=== PATIENT | male | born 1960 | race Caucasian/White ===

== ENCOUNTER → 2016-09-19 | Outpatient (CLI) | payer OTHER ==
[2016-09-19 12:28] LABS: INR 1.48
== END ==
LOC: M LAB 11:29
PROVIDERS: ATTEND Family Medicine
DX: I82.502 Chronic embolism and thrombosis of unspecified deep veins of left lower extremity (principal); Z79.01 Long term (current) use of anticoagulants

== ENCOUNTER → 2016-10-03 | Outpatient (CLI) | payer OTHER ==
[2016-10-03 15:48] LABS: INR 1.47
== END ==
LOC: M LAB 15:00
PROVIDERS: ATTEND Family Medicine
DX: I82.502 Chronic embolism and thrombosis of unspecified deep veins of left lower extremity (principal)

== ENCOUNTER → 2016-10-23 | Outpatient (CLI) | payer OTHER ==
[2016-10-23 14:51] LABS: INR 1.58
== END ==
LOC: M LAB 14:31
PROVIDERS: ATTEND Family Medicine
DX: I82.502 Chronic embolism and thrombosis of unspecified deep veins of left lower extremity (principal)

== ENCOUNTER → 2016-11-17 | Outpatient (REF) | payer OTHER ==
[2016-11-17 21:11] LABS: BANDS 1 % (< 11); EOSINOPHILS 1 % (0-5)
[2016-11-17 21:13] LABS: ANISOCYTOSIS 1+; POLYCHROMASIA 1+; SCHISTOCYTES 1+
[2016-11-17 21:14] LABS: ACANTHOCYTES 1+; HOWELL-JOLLY BODIES 1+; SMUDGE CELLS 2+
== END ==
LOC: M LAB REF 16:37
PROVIDERS: ATTEND Family Medicine
DX: C85.90 Non-Hodgkin lymphoma, unspecified, unspecified site (principal)

== ENCOUNTER → 2016-12-08 | Outpatient (CLI) | payer OTHER ==
[2016-12-08 16:53] LABS: INR 1.34
== END ==
LOC: M LAB 15:29
PROVIDERS: ATTEND Family Medicine
DX: I82.502 Chronic embolism and thrombosis of unspecified deep veins of left lower extremity (principal)

== ENCOUNTER → 2016-12-12 | Outpatient (CLI) | payer OTHER ==
[~2016-12-12] MED LIST: GASTROGRAFIN SOLUTION 30ML (Q9963) As Ordered ONE; ISOVUE-370 76% 100ML VIAL (Q9967) As Ordered ONE
--- NOTE | 2016-12-12 19:33 | REP ---
CT study of the chest with IV contrast: History: History of lymphoma with rising white blood cell count. Question progression. Comparison chest CT study is from 03/26/2013. CT contrast dose: 100 mL Isovue 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 An Trynkl-P-Uwbu catheter is noted on the right. There is no evidence of hilar or mediastinal mass or adenopathy. No pleural effusion is seen. The lung cummins show no evidence of infiltrate or pulmonary mass lesion. There is a granulomatous calcification in the left upper lobe as before. No bony destructive lesion is appreciated. There is no CT evidence of pulmonary embolism. No thoracic aortic abnormality is appreciated. The patient is status post prior splenectomy. Small nodule of residual or recurrent splenic tissue is again seen in the left upper quadrant beneath the diaphragm 2.9 cm in diameter unchanged from the 2013 prior study. Impression: No active disease seen in the chest. Elevated left hemidiaphragm, post splenectomy changes, and right-sided Oojouf-H-Jhxh catheter noted. Signed by Blu Downey MD 12/13/2016 08:56 A
--- NOTE | 2016-12-12 19:38 | REP ---
CT abdomen pelvis without and with IV contrast: With oral contrast: History: Lymphoma history with rising white blood cell count and question progression. Comparison CT study: 03/26/2013. CT contrast dose: 100 mL of Isovue 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 The patient is status post splenectomy. A 3.1 cm splenic nodule is seen again in the left upper quadrant consistent with regenerated or residual spleen unchanged from 2013. The liver is normal in size. No significant focal liver lesion is seen. There is a small 4 mm hypodense area in the right lobe compatible with a small cyst. This does not enhance. No adrenal lesion is seen on either side. Incidental note is made of a left-sided inferior vena cava containing a Ivan vena cava filter as before. The aorta is unremarkable. No other retroperitoneal abnormality is observed. There are some small parapelvic cysts in the left kidney. There is a 1.1 cm cyst in the right mid kidney. These findings are stable. No pancreatic abnormality is observed. The gallbladder is unremarkable. Small and large intestinal bowel loops are normal in appearance. A normal appendix is seen in the right lower quadrant. No pelvic or retroperitoneal mass or adenopathy is observed. There are a few dystrophic calcifications in the prostate gland. No bony destructive lesion is seen. Impression: Status post splenectomy with residual or recurrent splenic nodule again seen. 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 Dystrophic calcifications in the prostate. Small parapelvic left renal cysts. Small cortical cyst right kidney. 5 mm cyst right lobe of the liver. Otherwise unremarkable CT abdomen and pelvis. Signed by Blu Downey MD 12/13/2016 08:56 A
== END ==
LOC: M RAD 15:14
PROVIDERS: ATTEND Internal Medicine Hematology & Oncology
DX: C85.90 Non-Hodgkin lymphoma, unspecified, unspecified site (principal)

== ENCOUNTER → 2016-12-22 | Outpatient (CLI) | payer OTHER ==
[2016-12-22 16:11] LABS: INR 1.88
== END ==
LOC: M LAB 15:30
PROVIDERS: ATTEND Nurse Practitioner Adult Health
DX: Z51.81 Encounter for therapeutic drug level monitoring (principal); Z79.01 Long term (current) use of anticoagulants

== ENCOUNTER → 2017-02-14 | Outpatient (CLI) | payer OTHER ==
[2017-02-14 16:22] LABS: INR 1.45
== END ==
LOC: M LAB 14:57
PROVIDERS: ATTEND Nurse Practitioner Adult Health
DX: Z79.01 Long term (current) use of anticoagulants (principal)

== ENCOUNTER → 2017-02-21 | Outpatient (REF) | payer OTHER ==
[2017-02-21 18:33] LABS: INR 2.65
[2017-02-21 22:54] LABS: ACANTHOCYTES 1+; ANISOCYTOSIS 1+; BANDS 1 % (< 11); BASOPHILS 1 % (0-4); EOSINOPHILS 1 % (0-5); NUCLEATED RED BLOOD CELL 1 % (0-0); OVALOCYTES 1+; POIKILOCYTOSIS 1+; SMUDGE CELLS 1+
== END ==
LOC: M LAB REF 16:28
PROVIDERS: ATTEND Family Medicine
DX: I83.10 Varicose veins of unspecified lower extremity with inflammation (principal); Z79.01 Long term (current) use of anticoagulants

== ENCOUNTER → 2017-04-10 | Outpatient (CLI) | payer OTHER ==
--- NOTE | 2017-04-11 04:25 | REP ---
Clinical: History of lymphoma. Technique: Axial contrast enhanced images from the lung bases to the pubic symphysis using oral and 100 ml Isovue 370 intravenous contrast material with precontrast and delayed images of the abdomen as well as coronal and sagittal re-formations Comparison: 12/12/2016. Findings: Lung bases demonstrate minimal posterior basilar dependent changes. A 3 mm noncalcified medial right lower lobe subpleural density (image 20) is unchanged. Elevation to the left hemidiaphragm noted. Liver, left upper quadrant splenule, pancreas, gallbladder, bilateral adrenal glands and kidneys are normal. Incidental note is made of stable simple right intraparenchymal and left parapelvic renal cysts up to 1.2 cm. 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 The enteric system is without obstruction or acute inflammatory process. The pelvis demonstrates normal bladder and mildly prominent prostate gland. No significant intraperitoneal or retroperitoneal adenopathy. No mass lesion. No ascites. No free air. Surrounding musculoskeletal structures demonstrate age-related changes without focal osseous abnormality. Impression: 1. Chronic stable changes include bilateral renal cysts, mildly prominent prostate gland and evidence for prior splenectomy with residual splenule. 2. No acute abdominopelvic pathology appreciated. Specifically, no adenopathy or abdominal mass lesion or ascites noted. Signed by Hansel Mathews MD 04/11/2017 04:16 A
== END ==
LOC: M RAD 10:58
PROVIDERS: ATTEND Internal Medicine Hematology & Oncology
DX: C85.80 Other specified types of non-Hodgkin lymphoma, unspecified site (principal)

== ENCOUNTER → 2017-04-18 | Outpatient (CLI) | payer OTHER ==
[2017-04-18 16:56] LABS: INR 1.48
== END ==
LOC: M LAB 16:20
PROVIDERS: ATTEND Nurse Practitioner Adult Health
DX: Z79.01 Long term (current) use of anticoagulants (principal)

== ENCOUNTER → 2017-05-16 | Outpatient (CLI) | payer OTHER ==
[2017-05-16 16:22] LABS: INR 2.01
== END ==
LOC: M LAB 15:19
PROVIDERS: ATTEND Nurse Practitioner Adult Health
DX: Z79.01 Long term (current) use of anticoagulants (principal)

== ENCOUNTER → 2017-07-02 | Outpatient (CLI) | payer OTHER ==
[2017-07-02 14:32] LABS: INR 2.07
== END ==
LOC: M LAB 13:03
PROVIDERS: ATTEND Nurse Practitioner Adult Health
DX: Z79.01 Long term (current) use of anticoagulants (principal)

== ENCOUNTER → 2017-08-08 | Outpatient (CLI) | payer OTHER ==
[2017-08-08 11:37] LABS: INR 1.98
== END ==
LOC: M LAB 11:06
PROVIDERS: ATTEND Nurse Practitioner Adult Health
DX: Z79.01 Long term (current) use of anticoagulants (principal)

== ENCOUNTER → 2017-08-22 | Outpatient (REF) | payer OTHER ==
[2017-08-22 12:14] LABS: INR 1.69
[2017-08-22 12:52] LABS: BASOPHILS 1 % (0-4); EOSINOPHILS 2 % (0-5)
[2017-08-22 12:53] LABS: ANISOCYTOSIS 1+
[2017-08-22 12:54] LABS: BURR CELLS 1+
[2017-08-22 12:55] LABS: POIKILOCYTOSIS 1+; SMUDGE CELLS 1+
[2017-08-22 12:56] LABS: REASON FOR REVIEW COMPREHENSIVE REVIEW
== END ==
LOC: M LAB REF 11:52
PROVIDERS: ATTEND Family Medicine
DX: C85.90 Non-Hodgkin lymphoma, unspecified, unspecified site (principal); D72.9 Disorder of white blood cells, unspecified; Z79.01 Long term (current) use of anticoagulants

== ENCOUNTER → 2017-10-11 | Outpatient (CLI) | payer OTHER ==
[2017-10-11 19:11] LABS: INR 3.44; PROTHROMBIN TIME 36.3 SECONDS (12.4-14.5)
== END ==
LOC: M LAB 16:25
DX: Z79.01 Long term (current) use of anticoagulants (principal)
CPT/HCPCS: 85610

== ENCOUNTER → 2017-10-29 | Outpatient (CLI) | payer OTHER ==
[2017-10-29 16:03] LABS: INR 3.01; PROTHROMBIN TIME 32.6 SECONDS (12.4-14.5)
== END ==
LOC: M LAB 15:14
DX: Z79.01 Long term (current) use of anticoagulants (principal)

== ENCOUNTER → 2017-12-10 | Outpatient (CLI) | payer OTHER ==
[2017-12-10 15:44] LABS: INR 2.23; PROTHROMBIN TIME 25.5 SECONDS (12.4-14.5)
== END ==
LOC: M LAB 15:13
DX: Z79.01 Long term (current) use of anticoagulants (principal)
CPT/HCPCS: 85610

== ENCOUNTER → 2018-01-24 | Outpatient (CLI) | payer OTHER ==
[2018-01-24 14:08] LABS: PROTHROMBIN TIME 23.4 SECONDS (12.4-14.5)
== END ==
LOC: M LAB 13:18
DX: Z79.01 Long term (current) use of anticoagulants (principal)

== ENCOUNTER → 2018-03-04 | Outpatient (CLI) | payer OTHER ==
[2018-03-04 13:02] LABS: INR 3.09; PROTHROMBIN TIME 33.3 SECONDS (12.4-14.5)
== END ==
LOC: M LAB 11:52
DX: Z51.81 Encounter for therapeutic drug level monitoring (principal); Z79.01 Long term (current) use of anticoagulants
CPT/HCPCS: 85610

== ENCOUNTER → 2018-03-11 | Outpatient (REF) | payer OTHER ==
[2018-03-11 20:38] LABS: ATYPICAL LYMPH 3 % (0-5); BASOPHILS 1 % (0-4); LYMPHOCYTES 87 % (16-52); MONOCYTES 2 % (0-8); NEUTROPHILS 7 % (35-75)
[2018-03-11 20:41] LABS: PLATELET ESTIMATE NORMAL (NORMAL)
[2018-03-11 20:42] LABS: ANISOCYTOSIS 1+; POLYCHROMASIA 1+
== END ==
LOC: M LAB REF 18:02
DX: C83.00 Small cell B-cell lymphoma, unspecified site (principal)

== ENCOUNTER → 2018-04-22 | Outpatient (CLI) | payer OTHER ==
[2018-04-22 09:32] LABS: INR 2.83; PROTHROMBIN TIME 30.4 SECONDS (12.1-14.4)
== END ==
LOC: M LAB 07:47
DX: Z79.01 Long term (current) use of anticoagulants (principal)
CPT/HCPCS: 85610

== ENCOUNTER → 2018-05-17 | Outpatient (CLI) | payer OTHER ==
[2018-05-17 16:11] LABS: PROTHROMBIN TIME 34.3 SECONDS (12.1-14.4)
== END ==
LOC: M LAB 15:07
DX: Z51.81 Encounter for therapeutic drug level monitoring (principal); Z79.01 Long term (current) use of anticoagulants
CPT/HCPCS: 85610

== ENCOUNTER → 2018-06-19 | Outpatient (CLI) | payer OTHER ==
[2018-06-19 18:52] LABS: INR 2.23; PROTHROMBIN TIME 25.1 SECONDS (12.1-14.4)
== END ==
LOC: M LAB 17:18
DX: Z51.81 Encounter for therapeutic drug level monitoring (principal); Z79.01 Long term (current) use of anticoagulants
CPT/HCPCS: 85610

== ENCOUNTER → 2018-07-22 | Outpatient (CLI) | payer OTHER ==
[2018-07-22 14:57] LABS: INR 1.55; PROTHROMBIN TIME 18.8 SECONDS (12.1-14.4)
== END ==
LOC: M LAB 14:15
DX: Z51.81 Encounter for therapeutic drug level monitoring (principal); Z79.01 Long term (current) use of anticoagulants
CPT/HCPCS: 85610

== ENCOUNTER → 2018-08-12 | Outpatient (CLI) | payer OTHER ==
[2018-08-12 13:27] LABS: INR 2.32
== END ==
LOC: M LAB 11:45
DX: Z51.81 Encounter for therapeutic drug level monitoring (principal); Z79.01 Long term (current) use of anticoagulants
CPT/HCPCS: 85610

== ENCOUNTER → 2018-09-16 | Outpatient (REF) | payer OTHER ==
[2018-09-16 13:54] LABS: ATYPICAL LYMPH 63 % (0-5); LYMPHOCYTES 30 % (16-52); METAMYELOCYTES 1 % (0-0); MONOCYTES 3 % (0-8); NUCLEATED RED BLOOD CELL 1 % (0-0)
[2018-09-16 13:55] LABS: PLATELET ESTIMATE NORMAL (NORMAL)
[2018-09-16 13:56] LABS: SCHISTOCYTES 2+
[2018-09-16 13:59] LABS: OVALOCYTES 1+
[2018-09-16 15:11] LABS: NEUTROPHILS 2 % (35-75)
== END ==
LOC: M LAB REF 11:54
PROVIDERS: ATTEND Family Medicine
DX: C83.00 Small cell B-cell lymphoma, unspecified site (principal)

== ENCOUNTER → 2018-09-19 | Outpatient (CLI) | payer OTHER ==
[2018-09-19 19:24] LABS: HEMATOCRIT 29.7 % (42.0-52.0); HEMOGLOBIN 9.9 g/dl (13.5-17.5); MEAN CORPUSCULAR HEMOGLOBIN 35.6 pg (27.0-33.0); MEAN CORPUSCULAR HGB CONC 33.3 g/dl (32.0-36.5); MEAN CORPUSCULAR VOLUME 106.8 fl (80.0-96.0); PLATELET COUNT, AUTOMATED 193 10^3/uL (150-450); RED BLOOD COUNT 2.78 10^6/uL (4.30-6.10)
[2018-09-19 19:27] LABS: WHITE BLOOD COUNT 29.9 10^3/uL (4.0-10.0)
[2018-09-19 19:45] LABS: ALBUMIN 3.9 GM/DL (3.2-5.2); ALT/SGPT 60 U/L (12-78); BILIRUBIN,TOTAL 0.7 MG/DL (0.2-1.0); BLOOD UREA NITROGEN 13 MG/DL (7-18); CALCIUM LEVEL 8.6 MG/DL (8.5-10.1); CARBON DIOXIDE LEVEL 26 MEQ/L (21-32); CHLORIDE LEVEL 105 MEQ/L (98-107); CREATININE FOR GFR 0.73 MG/DL (0.70-1.30); GLOMERULAR FILTRATION RATE > 60.0 (>56); GLUCOSE, FASTING 86 MG/DL (70-100); LDH LACTATE DEHYDROGENASE 494 U/L (87-241); POTASSIUM SERUM 4.1 MEQ/L (3.5-5.1); SODIUM LEVEL 139 MEQ/L (136-145); TOTAL PROTEIN 5.9 GM/DL (6.4-8.2)
[2018-09-19 20:34] LABS: EOSINOPHILS 1 % (0-5); LYMPHOCYTES 91 % (16-52); MONOCYTES 3 % (0-8); NEUTROPHILS 5 % (35-75)
[2018-09-19 20:35] LABS: POLYCHROMASIA 1+
[2018-09-19 20:36] LABS: ANISOCYTOSIS 1+; SCHISTOCYTES 1+
[2018-09-19 20:37] LABS: HOWELL-JOLLY BODIES 1+; PLATELET ESTIMATE NORMAL (NORMAL); SMUDGE CELLS 1+
== END ==
LOC: M LAB 18:57
PROVIDERS: ATTEND Family Medicine
DX: C83.00 Small cell B-cell lymphoma, unspecified site (principal)

== ENCOUNTER → 2018-10-04 | Outpatient (CLI) | payer OTHER ==
[2018-10-04 10:40] LABS: HEMATOCRIT 27.4 % (42.0-52.0); MEAN CORPUSCULAR HEMOGLOBIN 34.7 pg (27.0-33.0); MEAN CORPUSCULAR HGB CONC 32.8 g/dl (32.0-36.5); MEAN CORPUSCULAR VOLUME 105.8 fl (80.0-96.0); PLATELET COUNT, AUTOMATED 191 10^3/uL (150-450); RED BLOOD COUNT 2.59 10^6/uL (4.30-6.10)
[2018-10-04 10:42] LABS: WHITE BLOOD COUNT 21.9 10^3/uL (4.0-10.0)
[2018-10-04 11:03] LABS: ATYPICAL LYMPH 2 % (0-5); EOSINOPHILS 1 % (0-5); LYMPHOCYTES 89 % (16-52); MONOCYTES 2 % (0-8); NEUTROPHILS 6 % (35-75)
[2018-10-04 11:04] LABS: PLATELET ESTIMATE NORMAL (NORMAL); SCHISTOCYTES 1+
== END ==
LOC: M LAB 10:06
PROVIDERS: ATTEND Internal Medicine Hematology & Oncology
DX: D61.818 Other pancytopenia (principal)

== ENCOUNTER → 2018-10-23 | Outpatient (CLI) | payer OTHER ==
[2018-10-23 12:13] LABS: INR 2.13; PROTHROMBIN TIME 24.2 SECONDS (12.1-14.4)
== END ==
LOC: M LAB 11:21
PROVIDERS: ATTEND Family Medicine
DX: Z51.81 Encounter for therapeutic drug level monitoring (principal); Z79.01 Long term (current) use of anticoagulants; Z86.718 Personal history of other venous thrombosis and embolism

== ENCOUNTER → 2018-12-12 | Outpatient (CLI) | payer OTHER ==
[2018-12-12 08:02] LABS: BASO # 0.1 10^3/uL (0.0-0.2); BASO % 2.2 % (0.0-1.0); EOS # 0.3 10^3/uL (0.0-0.50); EOS % 7.6 % (0.0-3.0); HEMATOCRIT 37.1 % (42.0-52.0); HEMOGLOBIN 12.5 g/dl (13.5-17.5); LYMPH # 2.2 10^3/uL (1.5-4.5); LYMPH % 48.8 % (24.0-44.0); MEAN CORPUSCULAR HEMOGLOBIN 35.6 pg (27.0-33.0); MEAN CORPUSCULAR HGB CONC 33.7 g/dl (32.0-36.5); MEAN CORPUSCULAR VOLUME 105.7 fl (80.0-96.0); MONO # 0.8 10^3/uL (0.0-0.8); MONO % 18.1 % (0.0-5.0); NEUTROPHILS % 23.1 % (36.0-66.0); PLATELET COUNT, AUTOMATED 212 10^3/uL (150-450); RED BLOOD COUNT 3.51 10^6/uL (4.30-6.10); WHITE BLOOD COUNT 4.5 10^3/uL (4.0-10.0)
== END ==
LOC: M LAB 07:15
PROVIDERS: ATTEND Family Medicine
DX: D61.818 Other pancytopenia (principal)

== ENCOUNTER → 2018-12-16 | Outpatient (CLI) | payer OTHER ==
[2018-12-16 11:33] LABS: INR 1.91; PROTHROMBIN TIME 22.2 SECONDS (12.1-14.4)
== END ==
LOC: M LAB 10:35
PROVIDERS: ATTEND Family Medicine
DX: I82.502 Chronic embolism and thrombosis of unspecified deep veins of left lower extremity (principal); Z51.81 Encounter for therapeutic drug level monitoring

== ENCOUNTER → 2018-12-31 | Outpatient (CLI) | payer OTHER ==
[2018-12-31 11:46] LABS: INR 1.93; PROTHROMBIN TIME 22.4 SECONDS (12.1-14.4)
== END ==
LOC: M LAB 10:32
PROVIDERS: ATTEND Family Medicine
DX: Z79.01 Long term (current) use of anticoagulants (principal); I82.409 Acute embolism and thrombosis of unspecified deep veins of unspecified lower extremity

== ENCOUNTER → 2019-01-29 | Outpatient (CLI) | payer OTHER ==
[2019-01-29 16:54] LABS: INR 2.17; PROTHROMBIN TIME 24.6 SECONDS (12.1-14.4)
== END ==
LOC: M LAB 15:25
PROVIDERS: ATTEND Family Medicine
DX: Z79.899 Other long term (current) drug therapy (principal)

== ENCOUNTER → 2019-03-15 | Outpatient (CLI) | payer OTHER ==
[2019-03-15 11:33] LABS: INR 3.19; PROTHROMBIN TIME 32.6 SECONDS (11.8-14.0)
== END ==
LOC: M LAB 10:42
PROVIDERS: ATTEND Family Medicine
DX: Z79.01 Long term (current) use of anticoagulants (principal); I82.409 Acute embolism and thrombosis of unspecified deep veins of unspecified lower extremity

== ENCOUNTER → 2019-04-22 | Outpatient (CLI) | payer OTHER ==
[2019-04-22 15:01] LABS: INR 1.92; PROTHROMBIN TIME 21.7 SECONDS (11.8-14.0)
== END ==
LOC: M LAB 14:15
PROVIDERS: ATTEND Family Medicine
DX: Z79.01 Long term (current) use of anticoagulants (principal)

== ENCOUNTER → 2019-05-13 | Outpatient (CLI) | payer OTHER ==
[2019-05-13 17:41] LABS: INR 3.56; PROTHROMBIN TIME 35.6 SECONDS (11.8-14.0)
== END ==
LOC: M LAB 15:39
PROVIDERS: ATTEND Family Medicine
DX: Z51.81 Encounter for therapeutic drug level monitoring (principal); Z79.01 Long term (current) use of anticoagulants

== ENCOUNTER → 2019-06-02 | Outpatient (CLI) | payer OTHER ==
[2019-06-02 14:53] LABS: INR 2.27; PROTHROMBIN TIME 24.8 SECONDS (11.8-14.0)
== END ==
LOC: M LAB 13:26
PROVIDERS: ATTEND Family Medicine
DX: Z79.01 Long term (current) use of anticoagulants (principal)

== ENCOUNTER → 2019-07-04 | Outpatient (CLI) | payer OTHER ==
[2019-07-04 15:20] LABS: INR 2.33; PROTHROMBIN TIME 25.4 SECONDS (11.8-14.0)
== END ==
LOC: M LAB 14:09
PROVIDERS: ATTEND Family Medicine
DX: Z79.01 Long term (current) use of anticoagulants (principal)

== ENCOUNTER → 2019-08-12 | Outpatient (CLI) | payer OTHER ==
[2019-08-12 16:34] LABS: INR 3.05; PROTHROMBIN TIME 31.5 SECONDS (11.8-14.0)
== END ==
LOC: M LAB 15:59
PROVIDERS: ATTEND Family Medicine
DX: Z79.01 Long term (current) use of anticoagulants (principal); I82.502 Chronic embolism and thrombosis of unspecified deep veins of left lower extremity

== ENCOUNTER → 2019-09-24 | Outpatient (REF) | payer OTHER ==
[2019-09-24 13:36] LABS: ATYPICAL LYMPH 27 % (0-5); EOSINOPHILS 3 % (0-3); LYMPHOCYTES 43 % (16-44); MONOCYTES 1 % (0-5); NEUTROPHILS 26 % (28-66)
[2019-09-24 13:47] LABS: ANISOCYTOSIS 2+
[2019-09-24 13:48] LABS: BURR CELLS 1+; GIANT PLATELETS 1+; POIKILOCYTOSIS 2+
[2019-09-24 13:49] LABS: PLATELET ESTIMATE NORMAL (NORMAL)
== END ==
LOC: M LAB REF 12:48
PROVIDERS: ATTEND Family Medicine
DX: Z85.72 Personal history of non-Hodgkin lymphomas (principal)

== ENCOUNTER → 2019-10-08 | Outpatient (CLI) | payer OTHER ==
[2019-10-08 19:14] LABS: INR 1.78; PROTHROMBIN TIME 20.4 SECONDS (11.8-14.0)
== END ==
LOC: M LAB 18:22
PROVIDERS: ATTEND Family Medicine
DX: Z79.01 Long term (current) use of anticoagulants (principal); I82.502 Chronic embolism and thrombosis of unspecified deep veins of left lower extremity

== ENCOUNTER → 2019-10-20 | Outpatient (CLI) | payer OTHER ==
[2019-10-20 12:36] LABS: INR 1.69; PROTHROMBIN TIME 19.6 SECONDS (11.8-14.0)
== END ==
LOC: M LAB 11:41
PROVIDERS: ATTEND Family Medicine
DX: Z79.01 Long term (current) use of anticoagulants (principal); I82.502 Chronic embolism and thrombosis of unspecified deep veins of left lower extremity

== ENCOUNTER → 2019-11-01 | Outpatient (CLI) | payer OTHER ==
[2019-11-01 12:27] LABS: INR 1.49; PROTHROMBIN TIME 17.7 SECONDS (11.8-14.0)
== END ==
LOC: M LAB 11:39
PROVIDERS: ATTEND Family Medicine
DX: I82.502 Chronic embolism and thrombosis of unspecified deep veins of left lower extremity (principal); Z79.01 Long term (current) use of anticoagulants

== ENCOUNTER → 2019-11-28 | Outpatient (CLI) | payer OTHER ==
[2019-11-28 15:40] LABS: INR 2.52
== END ==
LOC: M LAB 14:58
PROVIDERS: ATTEND Family Medicine
DX: I82.502 Chronic embolism and thrombosis of unspecified deep veins of left lower extremity (principal); Z79.01 Long term (current) use of anticoagulants

== ENCOUNTER → 2020-01-16 | Outpatient (CLI) | payer OTHER ==
[2020-01-16 12:00] LABS: INR 2.27; PROTHROMBIN TIME 24.9 SECONDS (11.8-14.0)
== END ==
LOC: M LAB 11:14
PROVIDERS: ATTEND Family Medicine
DX: I82.502 Chronic embolism and thrombosis of unspecified deep veins of left lower extremity (principal); Z79.01 Long term (current) use of anticoagulants

== ENCOUNTER 2020-02-11 18:16 | Emergency (ER) | payer OTHER ==
[~2020-02-11] VITALS: Ht 188 cm; Wt 77.5 kg
[2020-02-11] MEDS ORDERED: WARF-23 (18:25)
[2020-02-11] MEDS ORDERED: CITA10TA5 (18:25)
[2020-02-11] MEDS ORDERED: ZYLO300T6 (18:25)
[2020-02-11] MEDS ORDERED: NS 1,000 ML IV ONE (19:30)
[2020-02-11 20:05] LABS: BASO # 0.1 10^3/uL (0.0-0.2); BASO % 0.7 % (0.0-1.0); EOS # 0.7 10^3/uL (0.0-0.5); EOS % 4.8 % (0.0-3.0); HEMATOCRIT 45.1 % (42.0-52.0); HEMOGLOBIN 15.5 g/dl (13.5-17.5); LYMPH # 0.4 10^3/uL (1.5-5.0); LYMPH % 2.6 % (24.0-44.0); MEAN CORPUSCULAR HEMOGLOBIN 33.3 pg (27.0-33.0); MEAN CORPUSCULAR HGB CONC 34.4 g/dl (32.0-36.5); MONO % 6.8 % (0.0-5.0); NEUTROPHILS # 12.8 10^3/uL (1.5-8.5); NEUTROPHILS % 84.7 % (36.0-66.0); PLATELET COUNT, AUTOMATED 171 10^3/uL (150-450); RED BLOOD COUNT 4.65 10^6/uL (4.30-6.10); WHITE BLOOD COUNT 15.1 10^3/uL (4.0-10.0)
[2020-02-11 20:30] LABS: INR 1.56; PROTHROMBIN TIME 18.4 SECONDS (11.8-14.0)
[2020-02-11 21:02] LABS: ALBUMIN 3.7 GM/DL (3.2-5.2); ALT/SGPT 29 U/L (12-78); BILIRUBIN,TOTAL 0.5 MG/DL (0.2-1.0); BLOOD UREA NITROGEN 15 MG/DL (7-18); CALCIUM LEVEL 8.8 MG/DL (8.5-10.1); CARBON DIOXIDE LEVEL 28 MEQ/L (21-32); CHLORIDE LEVEL 105 MEQ/L (98-107); CREATININE FOR GFR 0.78 MG/DL (0.70-1.30); GLOMERULAR FILTRATION RATE > 60.0 (>56); GLUCOSE, FASTING 101 MG/DL (70-100); POTASSIUM SERUM 3.8 MEQ/L (3.5-5.1); SODIUM LEVEL 140 MEQ/L (136-145); TOTAL PROTEIN 6.3 GM/DL (6.4-8.2)
[2020-02-11 21:18] LABS: APPEARANCE, URINE CLEAR (CLEAR); BACTERIA, URINE AUTO NEGATIVE (NEGATIVE); BILIRUBIN, URINE AUTO NEGATIVE (NEGATIVE); BLOOD, URINE BLOOD NEGATIVE (NEGATIVE); COLOR, URINE YELLOW (YELLOW); GLUCOSE, URINE (UA) AUTO NEGATIVE (NEGATIVE); KETONE, URINE AUTO TRACE mg/dL (NEGATIVE); LEUKOCYTE ESTERASE, URINE AUTO NEGATIVE (NEGATIVE); MUCUS, URINE SMALL (NEGATIVE); NITRITE, URINE AUTO NEGATIVE (NEGATIVE); PROTEIN, URINE AUTO NEGATIVE (NEGATIVE); RBC, URINE AUTO 2 /HPF (0-3); SQUAMOUS EPITHELIAL CELL UR AU 0 /HPF (0-6); TRANSITIONAL EPITHELIAL AUTO <1 /HPF; UROBILINOGEN, URINE AUTO 0.2 mg/dL (0.0-2.0); WBC, URINE AUTO 1 /HPF (0-3)
--- NOTE | 2020-02-11 22:04 | REPVR ---
PROCEDURE INFORMATION: Exam: XR Chest, 1 View Exam date and time: 02/11/2020 8:52 PM Age: 59 years old Clinical indication: Shortness of breath; Additional info: Coronavirus workup TECHNIQUE: Imaging protocol: XR of the chest Views: 1 view. COMPARISON: CT Chest with contrast 12/12/2016 5:33 PM FINDINGS: Lungs: Hypoventilatory changes in the left lung base. Lungs are otherwise clear. Small calcified granuloma in the left upper lobe. Pleural space: Unremarkable. No pleural effusion. No pneumothorax. Heart/Mediastinum: Left MediPort at the atrial caval junction. Diaphragm: The left hemidiaphragm is elevated. Bones/joints: Unremarkable. IMPRESSION: No acute findings. Electronically signed by: Aleksandr Soliman On 02/11/2020 22:04:02 PM
[2020-02-11] MEDS ORDERED: ISOVUE-370 76% 100ML VIAL As Ordered ONE (22:11)
--- NOTE | 2020-02-11 23:00 | REPVR ---
PROCEDURE INFORMATION: Exam: CT Angiography Chest With Contrast Exam date and time: 02/11/2020 10:31 PM Age: 59 years old Clinical indication: Fever and shortness of breath; Additional info: SOB, fever TECHNIQUE: Imaging protocol: Computed tomographic angiography of the chest with intravenous contrast. 3D rendering: MIP and/or 3D reconstructed images were created by the technologist. Radiation optimization: All CT scans at this facility use at least one of these dose optimization techniques: automated exposure control; mA and/or kV adjustment per patient size (includes targeted exams where dose is matched to clinical indication); or iterative reconstruction. Contrast material: ISOVUE 370; Contrast volume: 75 ml; Contrast route: IV; COMPARISON: CT Chest with contrast 12/12/2016 5:33 PM FINDINGS: Tubes, catheters and devices: Right MediPort catheter extends to the right atrium. Pulmonary arteries: Normal. No pulmonary emboli. Aorta: Unremarkable. No aortic aneurysm. No aortic dissection. Lungs: Small calcified granuloma in the left upper lobe. Linear opacities in the left lung base. No other airspace consolidation or masses. Pleural space: Unremarkable. No pneumothorax. No pleural effusion. Heart: Unremarkable. No cardiomegaly. No pericardial effusion. Lymph nodes: Unremarkable. No enlarged lymph nodes. Diaphragm: There is persistent elevation of the left hemidiaphragm. Bones/joints: Unremarkable. No acute fracture. Soft tissues: Unremarkable. IMPRESSION: 1. Hypoventilatory changes in the left lung base with elevated left hemidiaphragm. 2. No evidence of pulmonary embolism or acute findings. Electronically signed by: Aleksandr Soliman On 02/11/2020 23:00:14 PM
[2020-02-11] MEDS ORDERED: CEFDINIR 300 MG CAP (OMNICEF) PO ONE (23:15)
[2020-02-11] MEDS ORDERED: CEFD1CAP8 PO (23:16)
[2020-02-11 23:36] VITALS: BP 137/75
== END 2020-02-11 23:38 | disposition home or self-care (01) ==
LOC: M ED 18:16
DX: J18.1 Lobar pneumonia, unspecified organism (principal); R50.9 Fever, unspecified; Z86.718 Personal history of other venous thrombosis and embolism; Z79.01 Long term (current) use of anticoagulants; Z79.899 Other long term (current) drug therapy
CPT/HCPCS: 71045; 71275; 80053; 81001; 83605; 85025; 85610; 87086; 87486; 87581; 87633; 87798; 87880; 96360; 99284; Q9967; U0003

== ENCOUNTER → 2020-02-11 | Outpatient (REF) | payer OTHER ==
[~2020-02-11] MED LIST changes: +CEFD1CAP8 PO; +CITA10TA5; -GASTROGRAFIN SOLUTION 30ML (Q9963) As Ordered ONE; -ISOVUE-370 76% 100ML VIAL (Q9967) As Ordered ONE; +WARF-23; +ZYLO300T6
== END ==
LOC: M LAB REF 16:03
PROVIDERS: ATTEND Internal Medicine
DX: R50.9 Fever, unspecified (principal)

== ENCOUNTER → 2020-02-17 | Outpatient (REF) | payer OTHER | LOC: M LAB REF 16:12 | PROVIDERS: ATTEND Internal Medicine | DX: J18.9 Pneumonia, unspecified organism (principal) ==

== ENCOUNTER → 2020-04-20 | Outpatient (CLI) | payer OTHER ==
[2020-06-13 11:00] LABS: INR 1.65; PROTHROMBIN TIME 19.9 SECONDS (12.5-14.3)
== END ==
LOC: M LAB 17:37
PROVIDERS: ATTEND Family Medicine
DX: I82.502 Chronic embolism and thrombosis of unspecified deep veins of left lower extremity (principal); Z79.01 Long term (current) use of anticoagulants

== ENCOUNTER → 2020-04-30 | Outpatient (CLI) | payer OTHER ==
[2020-04-30 10:14] LABS: INR 3.23; PROTHROMBIN TIME 33.7 SECONDS (11.8-14.0)
== END ==
LOC: M LAB 09:01
PROVIDERS: ATTEND Family Medicine
DX: I82.502 Chronic embolism and thrombosis of unspecified deep veins of left lower extremity (principal); Z79.01 Long term (current) use of anticoagulants

== ENCOUNTER → 2020-05-10 | Outpatient (CLI) | payer OTHER ==
[2020-05-10 15:43] LABS: INR 1.82; PROTHROMBIN TIME 21.5 SECONDS (11.8-14.0)
== END ==
LOC: M LAB 15:03
PROVIDERS: ATTEND Family Medicine
DX: I82.502 Chronic embolism and thrombosis of unspecified deep veins of left lower extremity (principal); Z79.01 Long term (current) use of anticoagulants

== ENCOUNTER → 2020-05-26 | Outpatient (CLI) | payer OTHER ==
[2020-05-26 15:04] LABS: INR 2.95; PROTHROMBIN TIME 31.4 SECONDS (11.8-14.0)
== END ==
LOC: M LAB 14:25
PROVIDERS: ATTEND Family Medicine
DX: I82.502 Chronic embolism and thrombosis of unspecified deep veins of left lower extremity (principal); Z79.01 Long term (current) use of anticoagulants

== ENCOUNTER → 2020-07-01 | Outpatient (CLI) | payer OTHER ==
[2020-07-01 16:27] LABS: INR 2.68; PROTHROMBIN TIME 29.1 SECONDS (12.5-14.3)
== END ==
LOC: M LAB 14:38
PROVIDERS: ATTEND Family Medicine
DX: I82.502 Chronic embolism and thrombosis of unspecified deep veins of left lower extremity (principal); Z79.01 Long term (current) use of anticoagulants

== ENCOUNTER → 2020-08-17 | Outpatient (CLI) | payer OTHER ==
[2020-08-17 16:26] LABS: INR 2.41; PROTHROMBIN TIME 26.8 SECONDS (12.5-14.3)
== END ==
LOC: M LAB 15:15
PROVIDERS: ATTEND Family Medicine
DX: I82.502 Chronic embolism and thrombosis of unspecified deep veins of left lower extremity (principal); Z79.01 Long term (current) use of anticoagulants

== ENCOUNTER → 2020-10-14 | Outpatient (CLI) | payer OTHER ==
[2020-10-14 17:07] LABS: INR 2.76; PROTHROMBIN TIME 29.8 SECONDS (12.5-14.3)
== END ==
LOC: M LAB 15:58
PROVIDERS: ATTEND Family Medicine
DX: I82.502 Chronic embolism and thrombosis of unspecified deep veins of left lower extremity (principal); Z79.01 Long term (current) use of anticoagulants

== ENCOUNTER → 2020-11-18 | Outpatient (CLI) | payer OTHER ==
[2020-11-18 18:16] LABS: INR 2.22; PROTHROMBIN TIME 25.1 SECONDS (12.5-14.3)
== END ==
LOC: M LAB 17:22
PROVIDERS: ATTEND Family Medicine
DX: I82.502 Chronic embolism and thrombosis of unspecified deep veins of left lower extremity (principal); Z79.01 Long term (current) use of anticoagulants

== ENCOUNTER → 2020-12-22 | Outpatient (CLI) | payer OTHER ==
[2020-12-22 14:57] LABS: INR 2.35; PROTHROMBIN TIME 26.3 SECONDS (12.5-14.3)
== END ==
LOC: M LAB 14:03
PROVIDERS: ATTEND Family Medicine
DX: Z79.01 Long term (current) use of anticoagulants (principal)

== ENCOUNTER → 2021-01-24 | Outpatient (CLI) | payer OTHER ==
[2021-01-24 18:43] LABS: INR 1.56
== END ==
LOC: M LAB 17:41
PROVIDERS: ATTEND Family Medicine
DX: Z79.01 Long term (current) use of anticoagulants (principal)

== ENCOUNTER → 2021-02-08 | Outpatient (CLI) | payer OTHER ==
[2021-02-08 14:58] LABS: INR 2.85; PROTHROMBIN TIME 30.6 SECONDS (12.5-14.3)
== END ==
LOC: M LAB 14:07
PROVIDERS: ATTEND Family Medicine
DX: I82.502 Chronic embolism and thrombosis of unspecified deep veins of left lower extremity (principal); Z79.01 Long term (current) use of anticoagulants

== ENCOUNTER → 2021-03-23 | Outpatient (CLI) | payer OTHER ==
[2021-03-23 15:56] LABS: INR 2.45; PROTHROMBIN TIME 27.1 SECONDS (12.5-14.3)
== END ==
LOC: M LAB 14:48
PROVIDERS: ATTEND Family Medicine
DX: Z79.01 Long term (current) use of anticoagulants (principal)

== ENCOUNTER → 2021-03-28 | Outpatient (CLI) | payer OTHER ==
[~2021-03-28] MED LIST changes: +PROHANCE 279.3MG/ML 15ML VIAL As Ordered ONE; +PROHANCE 279.3MG/ML 5ML VIAL As Ordered ONE
--- NOTE | 2021-03-29 09:49 | REP ---
INDICATION: PAIN, RESTRICTED MOVEMENT. COMPARISON: Radiographs on 02/27/2021. TECHNIQUE: Coronal oblique T1, T2 fat sat, sagittal oblique T2 fat sat, axial T2 fat sat, gradient echo. Pre and post contrast T1 fat-sat images, with the intravenous administration of 17 cc ProHance. FINDINGS: The study is limited due to patient motion. Rotator cuff: There is a partial undersurface tear of the supraspinatus tendon. There is a partial tear of the subscapularis tendon. Acromioclavicular joint: There are mild hypertrophic degenerative changes of the acromioclavicular joint. Acromion: Type 2 Biceps Tendon: In bicipital groove, no tenosynovitis. Hill Sach's deformity: None. Deltoid muscle: No abnormal signal. Biceps labral complex: Abnormal signal suggests a tear of the biceps labral complex, but it is not optimally evaluated due to patient motion. Labrum: Abnormal signal in the superior labrum suggests SLAP tear, but it is not optimally evaluated due to patient motion. Cartilage: No defects. Bone marrow: Small subcortical cystic changes are seen in the superolateral humeral head. Joint fluid: There is mild fluid in the acromioclavicular joint. No abnormal enhancement is seen. IMPRESSION: Partial undersurface tear supraspinatus tendon. Partial tear subscapularis tendon. Mild hypertrophic degenerative changes of the acromioclavicular joint with a type 2 acromion. Abnormal signal in the biceps labral complex and superior labrum suggests tears at these locations, however, evaluation is suboptimal due to patient motion. <Electronically signed by Bruno Flower > 03/29/21 [id number]
== END ==
LOC: M RAD 15:29
PROVIDERS: ATTEND Internal Medicine Hematology & Oncology
DX: S46.012A Strain of muscle(s) and tendon(s) of the rotator cuff of left shoulder, initial encounter (principal); X58.XXXA Exposure to other specified factors, initial encounter; Y92.9 Unspecified place or not applicable; Y93.9 Activity, unspecified; Y99.9 Unspecified external cause status; C85.80 Other specified types of non-Hodgkin lymphoma, unspecified site
CPT/HCPCS: 73223; A9576

== ENCOUNTER → 2021-05-03 | Outpatient (CLI) | payer OTHER ==
[~2021-05-03] MED LIST changes: -PROHANCE 279.3MG/ML 15ML VIAL As Ordered ONE; -PROHANCE 279.3MG/ML 5ML VIAL As Ordered ONE
[2021-05-03 12:51] LABS: INR 2.02; PROTHROMBIN TIME 23.3 SECONDS (12.7-14.5)
== END ==
LOC: M LAB 11:28
PROVIDERS: ATTEND Family Medicine
DX: Z79.01 Long term (current) use of anticoagulants (principal)

== ENCOUNTER → 2021-07-07 | Outpatient (CLI) | payer OTHER ==
[2021-07-07 12:29] LABS: INR 3.38; PROTHROMBIN TIME 34.4 SECONDS (12.7-14.5)
== END ==
LOC: M LAB 11:31
PROVIDERS: ATTEND Family Medicine
DX: I82.502 Chronic embolism and thrombosis of unspecified deep veins of left lower extremity (principal); Z79.01 Long term (current) use of anticoagulants

== ENCOUNTER → 2021-08-11 | Outpatient (CLI) | payer OTHER ==
[~2021-08-11] MED LIST changes: -CEFD1CAP8 PO; +CEFD300C41 PO; -CITA10TA5; +CITA10TA7
[2021-08-11 13:18] LABS: INR 3.02; PROTHROMBIN TIME 31.6 SECONDS (12.7-14.5)
== END ==
LOC: M LAB 12:12
PROVIDERS: ATTEND Family Medicine
DX: I82.502 Chronic embolism and thrombosis of unspecified deep veins of left lower extremity (principal); Z79.01 Long term (current) use of anticoagulants

== ENCOUNTER → 2021-10-07 | Outpatient (CLI) | payer OTHER ==
[2021-10-07 13:15] LABS: INR 1.15; PROTHROMBIN TIME 15.1 SECONDS (12.7-14.5)
== END ==
LOC: M LAB 11:46
PROVIDERS: ATTEND Family Medicine
DX: Z51.81 Encounter for therapeutic drug level monitoring (principal); I82.502 Chronic embolism and thrombosis of unspecified deep veins of left lower extremity; Z79.01 Long term (current) use of anticoagulants

== ENCOUNTER → 2021-10-12 | Outpatient (REF) | payer OTHER ==
[2021-10-12 18:01] LABS: ATYPICAL LYMPH 6 % (0-5); BASOPHILS 4 % (0-1); EOSINOPHILS 5 % (0-3); LYMPHOCYTES 16 % (16-44); MONOCYTES 9 % (0-5); NEUTROPHILS 60 % (28-66)
[2021-10-12 18:02] LABS: PLATELET ESTIMATE NORMAL (NORMAL)
== END ==
LOC: M LAB REF 16:35
PROVIDERS: ATTEND Family Medicine
DX: C83.00 Small cell B-cell lymphoma, unspecified site (principal)

== ENCOUNTER → 2021-10-26 | Outpatient (REF) | payer OTHER ==
[2021-10-26 13:33] LABS: INR 4.07; PROTHROMBIN TIME 39.7 SECONDS (12.7-14.5)
== END ==
LOC: M LAB REF 12:49
PROVIDERS: ATTEND Family Medicine
DX: I82.502 Chronic embolism and thrombosis of unspecified deep veins of left lower extremity (principal); Z79.01 Long term (current) use of anticoagulants

== ENCOUNTER → 2022-04-17 | Outpatient (REF) | payer OTHER ==
[2022-04-18 12:50] LABS: ATYPICAL LYMPH 3 % (0-5); BASOPHILS 2 % (0-1); EOSINOPHILS 5 % (0-3); LYMPHOCYTES 30 % (16-44); MONOCYTES 6 % (0-5); NEUTROPHILS 54 % (28-66)
[2022-04-18 12:51] LABS: PLATELET ESTIMATE NORMAL (NORMAL)
== END ==
LOC: M LAB REF 12:11
PROVIDERS: ATTEND Family Medicine
DX: C83.00 Small cell B-cell lymphoma, unspecified site (principal)

== ENCOUNTER → 2023-06-18 | Outpatient (CLI) | payer OTHER ==
[2023-06-18 12:57] LABS: BASO # 0.1 10^3/uL (0.0-0.2); BASO % 1.5 % (0.0-1.0); EOS # 0.2 10^3/uL (0.0-0.5); EOS % 3.1 % (0.0-3.0); HEMATOCRIT 51.3 % (42.0-52.0); HEMOGLOBIN 17.8 g/dl (13.5-17.5); LYMPH # 1.3 10^3/uL (1.5-5.0); LYMPH % 19.2 % (24.0-44.0); MEAN CORPUSCULAR HGB CONC 34.7 g/dl (32.0-36.5); MONO # 0.7 10^3/uL (0.0-0.8); NEUTROPHILS # 4.4 10^3/uL (1.5-8.5); NEUTROPHILS % 64.9 % (36.0-66.0); PLATELET COUNT, AUTOMATED 273 10^3/uL (150-450); WHITE BLOOD COUNT 6.7 10^3/uL (4.0-10.0)
[2023-06-18 13:12] LABS: LDH LACTATE DEHYDROGENASE 211 U/L (120-246)
[2023-06-18 13:13] LABS: ALBUMIN 3.9 G/DL (3.2-5.2); ALKALINE PHOSPHATASE 80 U/L (46-116); ALT/SGPT 33 U/L (7.0-40); AST/SGOT 18 U/L (<34); BILIRUBIN,TOTAL 0.7 MG/DL (0.3-1.2); BLOOD UREA NITROGEN 15 MG/DL (9-23); CALCIUM LEVEL 9.6 MG/DL (8.3-10.6); CARBON DIOXIDE LEVEL 30 MMOL/L (20-31); CHLORIDE LEVEL 107 MMOL/L (98-107); CREATININE FOR GFR 0.82 MG/DL (0.70-1.30); GLOMERULAR FILTRATION RATE > 60.0 (>49); GLUCOSE, FASTING 122 MG/DL (74-106); POTASSIUM SERUM 4.7 MMOL/L (3.5-5.1); SODIUM LEVEL 141 MMOL/L (136-145); TOTAL PROTEIN 6.2 G/DL (5.7-8.2)
== END ==
LOC: M LAB 11:18
PROVIDERS: ATTEND Internal Medicine Hematology & Oncology
DX: C85.80 Other specified types of non-Hodgkin lymphoma, unspecified site (principal)

== ENCOUNTER 2023-08-06 13:16 | Outpatient (CLI) | payer OTHER ==
[~2023-08-06] VITALS: Ht 177.8 cm; Wt 83.0 kg
[~2023-08-06 13:16] MED LIST changes: -CEFD300C41 PO; +CEFD300C42 PO; +SODIUM CHLORIDE 0.9% INJ 10 ML SYR IV SCH
[2023-08-06 13:45] VITALS: BP 132/85; O2SAT 97
== END 2023-08-06 13:45 ==
LOC: M INFU 13:16
PROVIDERS: ATTEND Internal Medicine Hematology & Oncology
DX: Z85.72 Personal history of non-Hodgkin lymphomas (principal)

== ENCOUNTER 2023-09-05 17:00 | Outpatient (CLI) | payer OTHER ==
[~2023-09-05] VITALS: Ht 188 cm; Wt 83.2 kg
[~2023-09-05 17:00] MED LIST changes: +CEFD1CAP9 PO; -CEFD300C42 PO
[2023-09-05] MEDS ORDERED: SODIUM CHLORIDE 0.9% INJ 10 ML SYR IV PRN (17:05)
[2023-09-05 17:15] VITALS: BP 128/77; O2SAT 95
[2023-09-06] MEDS ORDERED: SODIUM CHLORIDE 0.9% INJ 10 ML SYR IV SCH (09:00)
== END 2023-09-05 17:15 | disposition home or self-care (01) ==
LOC: M INFU 17:00
PROVIDERS: ATTEND Internal Medicine Hematology & Oncology
DX: Z85.72 Personal history of non-Hodgkin lymphomas (principal)

== ENCOUNTER 2023-10-08 13:06 | Outpatient (CLI) | payer OTHER ==
[~2023-10-08] VITALS: Ht 188 cm; Wt 83.2 kg
[2023-10-08 13:15] VITALS: BP 129/79; O2SAT 95
== END 2023-10-08 13:20 | disposition home or self-care (01) ==
LOC: M INFU 13:06
PROVIDERS: ATTEND Internal Medicine Hematology & Oncology
DX: Z85.72 Personal history of non-Hodgkin lymphomas (principal)

== ENCOUNTER 2023-11-05 15:00 | Outpatient (CLI) | payer OTHER ==
[~2023-11-05] VITALS: Ht 188 cm; Wt 83.0 kg
[2023-11-05 15:00] VITALS: BP 120/71; O2SAT 97
[~2023-11-05 15:00] MED LIST changes: -SODIUM CHLORIDE 0.9% INJ 10 ML SYR IV SCH
[2023-11-05] MEDS: SODIUM CHLORIDE 0.9% INJ 10 ML SYR IV PRN (15:05)
== END 2023-11-05 15:10 ==
LOC: M INFU 15:00
PROVIDERS: ATTEND Internal Medicine Hematology & Oncology
DX: Z85.72 Personal history of non-Hodgkin lymphomas (principal)

== ENCOUNTER 2023-12-03 13:15 | Outpatient (CLI) | payer OTHER ==
[~2023-12-03] VITALS: Ht 188 cm; Wt 81.6 kg
[2023-12-03] MEDS: SODIUM CHLORIDE 0.9% INJ 10 ML SYR IV SCH (13:18)
[2023-12-03 13:25] VITALS: BP 135/73; O2SAT 96
[2023-12-03] MEDS ORDERED: SODIUM CHLORIDE 0.9% INJ 10 ML SYR IV PRN (13:30)
== END 2023-12-03 13:32 ==
LOC: M INFU 13:15
PROVIDERS: ATTEND Internal Medicine Hematology & Oncology
DX: Z85.72 Personal history of non-Hodgkin lymphomas (principal)

== ENCOUNTER 2023-12-31 13:10 | Outpatient (CLI) | payer OTHER ==
[2023-12-31 13:10] VITALS: BP 134/88; O2SAT 100
[2023-12-31] MEDS: SODIUM CHLORIDE 0.9% INJ 10 ML SYR IV SCH (13:20)
== END 2023-12-31 13:30 ==
LOC: M INFU 13:10
PROVIDERS: ATTEND Internal Medicine Hematology & Oncology
DX: Z85.72 Personal history of non-Hodgkin lymphomas (principal)

== ENCOUNTER 2024-04-07 13:04 | Outpatient (CLI) | payer OTHER ==
[~2024-04-07 13:04] MED LIST changes: +SODIUM CHLORIDE 0.9% INJ 10 ML SYR IV PRN; +SODIUM CHLORIDE 0.9% INJ 10 ML SYR IV SCH
[2024-04-07 13:18] VITALS: BP 131/82; O2SAT 97
[2024-04-07] MEDS: SODIUM CHLORIDE 0.9% INJ 10 ML SYR IV SCH (13:19)
== END 2024-04-07 13:30 ==
LOC: M INFU 13:04
PROVIDERS: ATTEND Internal Medicine Hematology & Oncology
DX: Z85.72 Personal history of non-Hodgkin lymphomas (principal)

== ENCOUNTER 2024-04-28 07:44 | Day surgery (SDC) | payer OTHER ==
[~2024-04-28] VITALS: Ht 188 cm; Wt 82.6 kg
[2024-04-28] MEDS: NS 1,000 ML IV ONE (06:00)
[~2024-04-28 07:44] MED LIST changes: -CITA10TA7; +CITA10TA7 PO; -SODIUM CHLORIDE 0.9% INJ 10 ML SYR IV PRN; -SODIUM CHLORIDE 0.9% INJ 10 ML SYR IV SCH; +TRAM50TA2 PO; +XARE20TA PO
[2024-04-28] MEDS ORDERED: LIDOCAINE 2% 100MG/5ML SDV (FOR ANES.) As Ordered ONE (08:55)
[2024-04-28] MEDS ORDERED: propofoL 200 MG/20 ML VIAL As Ordered ONE (08:55)
[2024-04-28 09:05] VITALS: TEMP 97.8
[2024-04-28 09:22] VITALS: BP 150/87; O2SAT 96
== END 2024-04-28 09:27 | disposition home or self-care (01) ==
LOC: M OPP 07:44
PROVIDERS: ATTEND Surgery
DX: Z12.11 Encounter for screening for malignant neoplasm of colon (principal); G47.33 Obstructive sleep apnea (adult) (pediatric); Z86.718 Personal history of other venous thrombosis and embolism; Z79.01 Long term (current) use of anticoagulants; Z79.891 Long term (current) use of opiate analgesic; Z79.899 Other long term (current) drug therapy

== ENCOUNTER → 2024-06-20 | Outpatient (CLI) | payer OTHER ==
[2024-06-20 13:47] LABS: BASO # 0.1 10^3/uL (0.0-0.2); BASO % 1.5 % (0.0-1.0); EOS # 0.3 10^3/uL (0.0-0.5); HEMATOCRIT 48.3 % (42.0-52.0); HEMOGLOBIN 16.7 g/dl (13.5-17.5); LYMPH # 1.9 10^3/uL (1.5-5.0); LYMPH % 20.7 % (24.0-44.0); MEAN CORPUSCULAR HEMOGLOBIN 32.9 pg (27.0-33.0); MEAN CORPUSCULAR HGB CONC 34.6 g/dl (32.0-36.5); MEAN CORPUSCULAR VOLUME 95.1 fl (80.0-96.0); MONO # 1.1 10^3/uL (0.0-0.8); MONO % 12.6 % (2.0-8.0); NEUTROPHILS # 5.5 10^3/uL (1.5-8.5); NEUTROPHILS % 61.9 % (36.0-66.0); PLATELET COUNT, AUTOMATED 233 10^3/uL (150-450); RED BLOOD COUNT 5.08 10^6/uL (4.30-6.10); WHITE BLOOD COUNT 8.9 10^3/uL (4.0-10.0)
[2024-06-20 13:53] LABS: LDH LACTATE DEHYDROGENASE 231 U/L (120-246)
[2024-06-20 13:54] LABS: ALKALINE PHOSPHATASE 84 U/L (46-116); ALT/SGPT 26 U/L (7.0-40); AST/SGOT 17 U/L (<34); BILIRUBIN,TOTAL 0.9 MG/DL (0.3-1.2); BLOOD UREA NITROGEN 15 MG/DL (9-23); CALCIUM LEVEL 10.1 MG/DL (8.3-10.6); CARBON DIOXIDE LEVEL 29 MMOL/L (20-31); CHLORIDE LEVEL 105 MMOL/L (98-107); CREATININE FOR GFR 0.86 MG/DL (0.70-1.30); GLOMERULAR FILTRATION RATE > 60.0 (>49); GLUCOSE, FASTING 85 MG/DL (74-106); POTASSIUM SERUM 4.8 MMOL/L (3.5-5.1); SODIUM LEVEL 139 MMOL/L (136-145); TOTAL PROTEIN 6.5 G/DL (5.7-8.2)
== END ==
LOC: M LAB 12:08
PROVIDERS: ATTEND Hospitalist
DX: C85.80 Other specified types of non-Hodgkin lymphoma, unspecified site (principal)

== ENCOUNTER 2024-06-30 13:00 | Outpatient (CLI) | payer OTHER ==
[~2024-06-30] VITALS: Ht 188 cm; Wt 83.0 kg
[2024-06-30 13:00] VITALS: BP 144/80; O2SAT 93
[~2024-06-30 13:00] MED LIST changes: +SODIUM CHLORIDE 0.9% INJ 10 ML SYR IV PRN
[2024-06-30] MEDS: SODIUM CHLORIDE 0.9% INJ 10 ML SYR IV SCH (13:03)
== END 2024-06-30 15:10 ==
LOC: M INFU 13:00
PROVIDERS: ATTEND Internal Medicine Hematology & Oncology
DX: Z85.72 Personal history of non-Hodgkin lymphomas (principal)
CPT/HCPCS: 96523; J1642

== ENCOUNTER 2024-10-03 15:50 | Outpatient (CLI) | payer OTHER ==
[~2024-10-03 15:50] MED LIST changes: -SODIUM CHLORIDE 0.9% INJ 10 ML SYR IV PRN
[2024-10-03] MEDS: SODIUM CHLORIDE 0.9% INJ 10 ML SYR IV SCH (15:54)
[2024-10-03 16:10] VITALS: BP 116/78; O2SAT 96
== END 2024-10-03 16:05 ==
LOC: M INFU 15:50
PROVIDERS: ATTEND Internal Medicine Hematology & Oncology
DX: Z85.72 Personal history of non-Hodgkin lymphomas (principal)
CPT/HCPCS: 96523; J1642

== ENCOUNTER 2024-10-31 15:50 | Outpatient (CLI) | payer OTHER ==
[2024-10-31] MEDS: SODIUM CHLORIDE 0.9% INJ 10 ML SYR IV SCH (15:57)
[2024-10-31 16:00] VITALS: BP 139/71; O2SAT 96
== END 2024-10-31 16:10 | disposition home or self-care (01) ==
LOC: M INFU 15:50
PROVIDERS: ATTEND Internal Medicine Hematology & Oncology
DX: Z85.72 Personal history of non-Hodgkin lymphomas (principal)
CPT/HCPCS: 96523; J1642

== ENCOUNTER 2024-11-26 16:40 | Outpatient (CLI) | payer OTHER ==
[2024-11-26] MEDS: SODIUM CHLORIDE 0.9% INJ 10 ML SYR IV SCH (16:44)
[2024-11-26 16:50] VITALS: BP 133/71; O2SAT 96
== END 2024-11-26 16:50 ==
LOC: M INFU 16:40
PROVIDERS: ATTEND Internal Medicine Hematology & Oncology
DX: Z85.72 Personal history of non-Hodgkin lymphomas (principal)
CPT/HCPCS: 96523; J1642

== ENCOUNTER → 2024-12-05 | Outpatient (CLI) | payer OTHER | LOC: M WUC 10:01 | PROVIDERS: ATTEND Nurse Practitioner Family | DX: M25.562 Pain in left knee (principal) ==

== ENCOUNTER 2024-12-24 09:30 | Outpatient (CLI) | payer OTHER ==
[~2024-12-24] VITALS: Ht 188 cm; Wt 81.8 kg
[2024-12-24 09:30] VITALS: BP 125/68; O2SAT 93
[2024-12-24] MEDS: SODIUM CHLORIDE 0.9% INJ 10 ML SYR IV SCH (09:30)
== END 2024-12-24 09:40 | disposition home or self-care (01) ==
LOC: M INFU 09:30
PROVIDERS: ATTEND Internal Medicine Hematology & Oncology
DX: Z45.2 Encounter for adjustment and management of vascular access device (principal)
CPT/HCPCS: 96523; J1642

== ENCOUNTER → 2024-12-26 | Outpatient (CLI) | payer OTHER ==
[2024-12-26 16:47] LABS: BASO # 0.1 10^3/uL (0.0-0.2); BASO % 1.3 % (0.0-1.0); EOS # 0.5 10^3/uL (0.0-0.5); EOS % 4.7 % (0.0-3.0); HEMATOCRIT 46.5 % (42.0-52.0); HEMOGLOBIN 15.8 g/dl (13.5-17.5); LYMPH # 2.8 10^3/uL (1.5-5.0); LYMPH % 28.6 % (24.0-44.0); MEAN CORPUSCULAR HEMOGLOBIN 32.1 pg (27.0-33.0); MEAN CORPUSCULAR VOLUME 94.5 fl (80.0-96.0); MONO # 1.4 10^3/uL (0.0-0.8); MONO % 14.7 % (2.0-8.0); NEUTROPHILS % 50.5 % (36.0-66.0); PLATELET COUNT, AUTOMATED 237 10^3/uL (150-450); RED BLOOD COUNT 4.92 10^6/uL (4.30-6.10); WHITE BLOOD COUNT 9.8 10^3/uL (4.0-10.0)
[2024-12-26 17:23] LABS: ALBUMIN 3.6 G/DL (3.2-5.2); ALKALINE PHOSPHATASE 78 U/L (40-129); ALT/SGPT 27 U/L (7.0-40); AST/SGOT 20 U/L (<34); BILIRUBIN,TOTAL 0.5 MG/DL (0.3-1.2); BLOOD UREA NITROGEN 17 MG/DL (9-23); CALCIUM LEVEL 9.1 MG/DL (8.3-10.6); CARBON DIOXIDE LEVEL 26 MMOL/L (20-31); CHLORIDE LEVEL 103 MMOL/L (98-107); CREATININE FOR GFR 0.89 MG/DL (0.70-1.30); GLOMERULAR FILTRATION RATE > 90.0 (>49); GLUCOSE, FASTING 78 MG/DL (74-106); POTASSIUM SERUM 4.5 MMOL/L (3.5-5.1); SODIUM LEVEL 138 MMOL/L (136-145); TOTAL PROTEIN 6.1 G/DL (5.7-8.2)
== END ==
LOC: M LAB 16:24
PROVIDERS: ATTEND Internal Medicine Hematology & Oncology
DX: C85.90 Non-Hodgkin lymphoma, unspecified, unspecified site (principal)

== ENCOUNTER 2025-01-23 09:19 | Outpatient (CLI) | payer OTHER ==
[~2025-01-23] VITALS: Ht 188 cm; Wt 81.8 kg
[2025-01-23] MEDS: SODIUM CHLORIDE 0.9% INJ 10 ML SYR IV SCH (09:37)
[2025-01-23 09:40] VITALS: BP 125/75; O2SAT 97
== END 2025-01-23 09:40 ==
LOC: M INFU 09:19
PROVIDERS: ATTEND Internal Medicine Hematology & Oncology
DX: Z45.2 Encounter for adjustment and management of vascular access device (principal)
CPT/HCPCS: 96523; J1642

== ENCOUNTER 2025-03-25 13:09 | Outpatient (CLI) | payer MEDICARE, OTHER ==
[~2025-03-25] VITALS: Ht 188 cm; Wt 79.5 kg
[2025-03-25] MEDS: SODIUM CHLORIDE 0.9% INJ 10 ML SYR IV SCH (13:28)
[2025-03-25] MEDS: HEPARIN LOCK FLUSH 100 UNITS/ML 3 ML SYRINGE IV SCH (13:28)
[2025-03-25 13:30] VITALS: BP 152/75; O2SAT 97
== END 2025-03-25 13:30 | disposition home or self-care (01) ==
LOC: M INFU 13:09
PROVIDERS: ATTEND Internal Medicine Hematology & Oncology
DX: Z45.2 Encounter for adjustment and management of vascular access device (principal)
CPT/HCPCS: 96523; J1642

== ENCOUNTER → 2025-04-10 | Outpatient (CLI) | payer MEDICARE, OTHER ==
[~2025-04-10] MED LIST changes: +ISOVUE-370 76% 100 ML VIAL As Ordered ONE
== END ==
LOC: M RAD 10:12
PROVIDERS: ATTEND Family Medicine
DX: R05.9 Cough, unspecified (principal); C83.0 Small cell B-cell lymphoma; J98.11 Atelectasis; J84.10 Pulmonary fibrosis, unspecified; R91.8 Other nonspecific abnormal finding of lung field; I70.0 Atherosclerosis of aorta
CPT/HCPCS: 71260; Q9967

== ENCOUNTER 2025-04-27 13:43 | Outpatient (CLI) | payer MEDICARE, OTHER ==
[~2025-04-27 13:43] MED LIST changes: -ISOVUE-370 76% 100 ML VIAL As Ordered ONE
[2025-04-27] MEDS: SODIUM CHLORIDE 0.9% INJ 10 ML SYR IV SCH (14:02)
[2025-04-27] MEDS: HEPARIN LOCK FLUSH 100 UNITS/ML 3 ML SYRINGE IV SCH (14:02)
[2025-04-27 14:05] VITALS: BP 150/77; O2SAT 96
== END 2025-04-27 14:05 | disposition home or self-care (01) ==
LOC: M INFU 13:43
PROVIDERS: ATTEND Internal Medicine Hematology & Oncology
DX: Z45.2 Encounter for adjustment and management of vascular access device (principal)
CPT/HCPCS: 96523; J1642

== ENCOUNTER 2025-06-01 13:50 | Outpatient (CLI) | payer MEDICARE, OTHER ==
[2025-06-01 14:20] VITALS: BP 131/68; O2SAT 94
[2025-06-01] MEDS: SODIUM CHLORIDE 0.9% INJ 10 ML SYR IV SCH (14:37)
[2025-06-01] MEDS: HEPARIN LOCK FLUSH 100 UNITS/ML 3 ML SYRINGE IV SCH (14:37)
== END 2025-06-01 14:45 | disposition home or self-care (01) ==
LOC: M INFU 13:50
PROVIDERS: ATTEND Internal Medicine Hematology & Oncology
DX: Z45.2 Encounter for adjustment and management of vascular access device (principal)
CPT/HCPCS: 96523; J1642

== ENCOUNTER → 2025-06-23 | Outpatient (CLI) | payer MEDICARE, OTHER ==
[2025-06-23 12:05] LABS: BASO # 0.1 10^3/uL (0.0-0.2); BASO % 1.4 % (0.0-1.0); EOS # 0.3 10^3/uL (0.0-0.5); EOS % 4.3 % (0.0-3.0); LYMPH # 1.8 10^3/uL (1.5-5.0); LYMPH % 25.1 % (24.0-44.0); MONO # 1.0 10^3/uL (0.0-0.8); MONO % 13.8 % (2.0-8.0); NEUTROPHILS # 4.0 10^3/uL (1.5-8.5); NEUTROPHILS % 55.1 % (36.0-66.0); PLATELET COUNT, AUTOMATED 270 10^3/uL (150-450)
[2025-06-23 12:41] LABS: ALT/SGPT 25 U/L (7.0-40); AST/SGOT 19 U/L (<34); CALCIUM LEVEL 9.6 MG/DL (8.3-10.6); CARBON DIOXIDE LEVEL 28 MMOL/L (20-31); CHLORIDE LEVEL 104 MMOL/L (98-107); CREATININE FOR GFR 0.88 MG/DL (0.70-1.30); GLOMERULAR FILTRATION RATE > 90.0 (>49); POTASSIUM SERUM 4.5 MMOL/L (3.5-5.1); SODIUM LEVEL 142 MMOL/L (136-145)
== END ==
LOC: M LAB 10:48
PROVIDERS: ATTEND Internal Medicine Hematology & Oncology
DX: C94.80 Other specified leukemias not having achieved remission (principal)

== ENCOUNTER 2025-07-06 16:53 | Outpatient (CLI) | payer MEDICARE, OTHER ==
[~2025-07-06] VITALS: Ht 188 cm; Wt 75.0 kg
[~2025-07-06 16:53] MED LIST changes: +HEPARIN LOCK FLUSH 100 UNITS/ML 3 ML SYRINGE IV PRN; +HEPARIN LOCK FLUSH 100 UNITS/ML 3 ML SYRINGE IV SCH; +SODIUM CHLORIDE 0.9% INJ 10 ML SYR IV PRN; +SODIUM CHLORIDE 0.9% INJ 10 ML SYR IV SCH
[2025-07-06] MEDS: SODIUM CHLORIDE 0.9% INJ 10 ML SYR IV SCH (17:02)
[2025-07-06] MEDS: HEPARIN LOCK FLUSH 100 UNITS/ML 3 ML SYRINGE IV SCH (17:02)
[2025-07-06 17:10] VITALS: BP 115/72; O2SAT 96
== END 2025-07-06 17:10 | disposition home or self-care (01) ==
LOC: M INFU 16:53
PROVIDERS: ATTEND Internal Medicine Hematology & Oncology
DX: Z45.2 Encounter for adjustment and management of vascular access device (principal)
CPT/HCPCS: 96374; J1642

== ENCOUNTER 2025-08-03 13:46 | Outpatient (CLI) | payer MEDICARE, OTHER ==
[~2025-08-03] VITALS: Ht 188 cm; Wt 80.9 kg
[~2025-08-03 13:46] MED LIST changes: -HEPARIN LOCK FLUSH 100 UNITS/ML 3 ML SYRINGE IV PRN; -HEPARIN LOCK FLUSH 100 UNITS/ML 3 ML SYRINGE IV SCH; -SODIUM CHLORIDE 0.9% INJ 10 ML SYR IV PRN; -SODIUM CHLORIDE 0.9% INJ 10 ML SYR IV SCH
[2025-08-03] MEDS: HEPARIN LOCK FLUSH 100 UNITS/ML 3 ML SYRINGE IV SCH (13:54)
[2025-08-03] MEDS: SODIUM CHLORIDE 0.9% INJ 10 ML SYR IV SCH (13:54)
== END 2025-08-03 14:05 | disposition home or self-care (01) ==
LOC: M INFU 13:46
PROVIDERS: ATTEND Internal Medicine Hematology & Oncology
DX: Z45.2 Encounter for adjustment and management of vascular access device (principal)
CPT/HCPCS: 96523; J1642

== ENCOUNTER 2025-09-07 14:30 | Outpatient (CLI) | payer MEDICARE, OTHER ==
[2025-09-07] MEDS: HEPARIN LOCK FLUSH 100 UNITS/ML 3 ML SYRINGE IV SCH (14:35)
[2025-09-07] MEDS: SODIUM CHLORIDE 0.9% INJ 10 ML SYR IV SCH (14:35)
[2025-09-07 14:41] VITALS: BP 129/86; O2SAT 97
== END 2025-09-07 14:40 ==
LOC: M INFU 14:30
PROVIDERS: ATTEND Internal Medicine Hematology & Oncology
DX: Z45.2 Encounter for adjustment and management of vascular access device (principal)
CPT/HCPCS: 96523; J1642